=== PATIENT | female | born 1990 | race Caucasian/White ===

== ENCOUNTER → 2016-07-05 | Outpatient (CLI) | payer OTHER ==
[~2016-07-05] MED LIST: AMOX875T3 PO; CYAN500T PO; EFF50 PO; ETON1IMP2; GADAVIST IV PRN; MULT-506 PO; NUTRPAK70; SUMA100T16 PO; WLL75 PO
--- NOTE | 2016-07-05 09:54 | DIAGNOSTIC IMAGING REPORT ---
MRI THE NECK WITHOUT A WITH GADOLINIUM CLINICAL HISTORY: Pterygoid muscle mass. COMPARISON STUDY: MRI the brain performed December 07, 2015 FINDINGS: Imaging was performed in the coronal and axial planes. Images before and after the administration of 6 cc of intravenous Gadavist were acquired. There is a small retention cyst within the left maxilla sinus. There is a T2 bright mass within the left lateral pterygoid muscle measuring 16 x 16 x 11 mm. This appears minimally larger than on the prior study. The mass demonstrates avid post gadolinium enhancement. No additional masses are visualized. No salivary gland masses are evident. There is no pathologic cervical lymphadenopathy. IMPRESSION: Very slight interval increase in the size of a circumscribed 16 x 16 x 11, avidly enhancing T2 bright mass involving the left pterygoid muscle. Likely diagnostic considerations include intramuscular hemangioma, angiofibroma, intramuscular paraganglioma or intramuscular neurogenic tumor. Electronically signed by: Kaiden Esquivel M.D. 07/05/2016 9:53 AM Dictated Date/Time: 07/05/2016 9:41 AM
== END | disposition home or self-care (01) ==
LOC: C.MRI 08:49
PROVIDERS: ATTEND Otolaryngology
DX: I99.9 Unspecified disorder of circulatory system (principal)

== ENCOUNTER → 2016-07-06 | Outpatient (CLI) | payer OTHER ==
[~2016-07-06] MED LIST changes: -GADAVIST IV PRN
== END | disposition home or self-care (01) ==
LOC: C.LAB 14:18
PROVIDERS: ATTEND Obstetrics & Gynecology
DX: O99.89 Other specified diseases and conditions complicating pregnancy, childbirth and the puerperium (principal); Z3A.00 Weeks of gestation of pregnancy not specified

== ENCOUNTER 2016-07-18 09:33 | Emergency (ER) | payer OTHER ==
[~2016-07-18] VITALS: Ht 167.6 cm; Wt 67.7 kg
[2016-07-18 09:38] VITALS: Ht 167.6 cm; Wt 67.7 kg
[2016-07-18] MEDS ORDERED: EFF50 PO (09:57)
[2016-07-18] MEDS ORDERED: WLL75 PO (09:57)
[2016-07-18] MEDS ORDERED: NUTRPAK70 (09:57)
[2016-07-18 10:32] LABS: BASO % 0.3 %; BASO ABS # 0.02 K/uL (0-0.2); COMPLETE YES; EOS % 0.9 %; HEMATOCRIT 34.2 % (37-47); IG% 0.1 %; LYMPH % 15.4 %; MEAN CELL VOLUME 79.5 fL (80-100); MEAN CORPUSCULAR HEMOGLOBIN 27.2 pg (25-34); MEAN CORPUSCULAR HGB CONC 34.2 g/dl (32-36); MEAN PLATELET VOLUME 11.4 fL (7.4-10.4); MONO % 13.5 %; NEUT % 69.8 %; PLATELET COUNT 194 K/uL (130-400); WHITE BLOOD COUNT 7.79 K/uL (4.8-10.8)
[2016-07-18 10:47] LABS: PROTHROMBIN TIME (PATIENT) 10.8 SECONDS (9.0-12.0)
[2016-07-18 10:50] LABS: BUN/CREATININE RATIO 12.2 (10-20); CALCIUM 8.7 mg/dl (8.5-10.1); CREATININE 0.68 mg/dl (0.60-1.20); POTASSIUM 3.7 mmol/L (3.5-5.1)
[2016-07-18 10:53] LABS: ALB/GLOB RATIO 1.1 (0.9-2)
--- NOTE | 2016-07-18 11:53 | DIAGNOSTIC IMAGING REPORT ---
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 Vaginal bleeding. TECHNIQUE: Ultrasound COMPARISON STUDY: None FINDINGS: Per history the patient has a history of intrauterine gestational sac. This images are not available. There is intrauterine device in position within the central canal. At the fundal aspect of the intrauterine device is a very small saclike process which is at 2 small 5 to evaluate the content. Myometrium and remaining endometrium is diffusely heterogeneous which may indicate hemorrhagic component The ovaries are not well seen due to overlying bowel content. IMPRESSION: 1. Thickened heterogeneous endometrium with an intrauterine device present within the central canal. 2. Small sac like process at adjacent to the proximal/fundal tip of the intrauterine device which may reside represent residual from a prior intrauterine . 3. heartbeat or pole are not identified. 4. Diffuse heterogeneity and prominence of the endometrium , indicative of a hemorrhagic component. Electronically signed by: Poncho Baird M.D. 07/18/2016 11:51 AM Dictated Date/Time: 07/18/2016 11:48 AM
[2016-07-18 13:26] VITALS: BP 121/69; PULSE 104; TEMP 36.8; O2SAT 100
[2016-07-18 14:10] VITALS: BP 121/69; PULSE 104; O2SAT 100
--- NOTE | 2016-07-18 14:28 | GYNECOLOGICAL CONSULTATION ---
DATE OF CONSULTATION: 07/18/2016 CHIEF COMPLAINT: Vaginal bleeding. HISTORY OF PRESENT ILLNESS: This is a 26-year-old G1, P0, seen by my partner, Dr. Get Geller on July 06, at which time she had been found to have a positive home test and she had a copper IUD in place. At that time, the patient had an ultrasound done in the office setting which showed what was felt to be an intrauterine in the right horn of a bicornuate uterus with a copper IUD in the lower uterine segment; however, there was no pole or yolk sac seen, and at that time, her quant was in 1200 range. She is known Rh negative. Dr. Geller counseled her at that time on the importance of removing the IUD, which the patient refused. He also counseled her on the importance of RhoGAM if indeed bleeding began and the patient was planning a trip the following week, the patient decided to decline medical care in favor of going on her vacation, which she did. She calls me this morning as the oncall physician and reports that she did indeed travel to [facility], during her time there on July 09, heavy bleeding began. The patient uses menstrual cups, tampons and also admits to "making her own tampons" by filling the vagina with dining napkins. She soaked through all of these various items with passage of large clots. She did not at any time feel lightheaded or afraid of the amount of bleeding, but she did expect that she was having a miscarriage which in her eyes with a positive thing as this was an unplanned undesired . She contacted me this morning stating that the bleeding continues. She still denies lightheadedness, but she wonders what medical care she needs now that she is here in the [facility]. She was advised to present to the ER, which she did. On presentation to the ER, an ultrasound was done which I have looked at, the report of today's ultrasound shows a thickened heterogenous endometrium with a sac like process which is adjacent to the proximal or fundal tip of the intrauterine device, which is believed to be too small in size to evaluate any contents. The IUD remains within the "central canal." There is no pole or heart beat identified and the adnexa are not well seen due to "overlying bowel content." As of today, the patient's beta hCG has increased significantly to 16,866. Her hemoglobin is 11.7 and her platelets are 194. The patient states the bleeding does not bother her, this has not desired and at this point she wants to know if she can still go see an clinic or what her options are. REVIEW OF SYSTEMS: Negative x10 except as described above. PAST MEDICAL HISTORY: Migraines. PAST SURGICAL HISTORY: None. SOCIAL HISTORY: Nonsmoking single white female, accompanied by her partner. She denies any prior sexual partners and states in front of this male that he is the only partner of her lifetime. MEDICATIONS: Bupropion 75 mg p.o. b.i.d. and venlafaxine 50 mg p.o. b.i.d. as well as [id number] cold and flu medicine for a current upper respiratory illness. ALLERGIES: No known drugs. PHYSICAL EXAMINATION: VITAL SIGNS: Currently temperature 37.1, pulse 77, respirations 20, BP 146/85 and then on retake 117/72, pulse ox 97-100% on room air. GENERAL: Alert, oriented, in no acute distress. HEENT: Grossly normal. NECK: Supple. RESPIRATORY: No accessory muscle use, normal rate, speaking fluently. CARDIOVASCULAR: No peripheral edema. GASTROINTESTINAL: She has a soft, nontender abdomen without obvious rebound, guarding or distention. GENITOURINARY: Bimanual exam reveals a 6-7 cm uterus which is midline and nondistended. No adnexal tenderness. No cervical motion tenderness. Speculum exam reveals a closed, long, and thick cervix with a small amount of dark red vaginal blood in the vault. Normal external genitalia. MUSCULOSKELETAL: Normal. EXTREMITIES: In range of motion. HEME: No obvious ecchymoses. IMAGING: Reviewed includes the pelvic ultrasound previously discussed. LABORATORY VALUES: Previously discussed. ASSESSMENT AND PLAN: A 26-year-old G1, P0 with an undesired unplanned of uncertain location with an intrauterine device still in place. I have discussed with the patient that given the limited information available to us by combining what was done in the office prior to her trip and what we are able to do today, several possibilities remain on the differential, one of these possibilities is ectopic . With a which was conceived in the setting of an intrauterine device, this is always a possibility. At no time have we been able to yet to image a definitive intrauterine with either yolk sac or pole and therefore we must remain cognizant of the fact that this could be a pseudo sac in the uterus, especially given that her hCG has risen despite her bleeding. Second possibility is that she had an intrauterine which was very early prior to her departure which then developed and miscarried and now she is in fact resolving what was an intrauterine , so although there may have been an intrauterine that we were not able to demonstrate the sac that is seen today could be debris that remains. Final possibility is that she has a normally developing intrauterine , which is undesired. We discussed that the intrauterine device cannot be relied on to provide control at this time, it is not felt to be in a normal position, further she has a bicornuate uterus and now that this is not an intrauterine device is not an appropriate control method for her. She has decided that she would like to use condoms with 100% compliance for her control at this time. She consented today to removal of the intrauterine device. Attempt was made in the Emergency Department setting to remove the intrauterine device using a placental forceps, which was best instrument available to me and unfortunately I was unable to retrieve the intrauterine device as no strings are visible and I was unable to actually confirm the intrauterine device' presence by filling the forceps, grasp, or bump into anything solid inside the uterus. The patient did have a type and screen done today and as her antibody screen was negative, RhoGAM was administered to the patient today. We discussed the management of her of unknown location. The patient does not wish to carry this ; however, she is also anxious about receiving methotrexate as it is chemotherapeutic and has some unpleasant side effects. She wishes to observe for 48 hours with a follow up quant and ultrasound to be done at that time. If her quant is falling, she hopes to manage expectantly. If her quant is arising, she will accept methotrexate at that time. Meanwhile, ectopic precautions including being with a over the road driver at all times and returning to the Emergency Room promptly for any onset of sudden pain, nausea, vomiting, lightheadedness, fecal urgency or worsening of her bleeding was discussed with the patient and her partner. They understand the seriousness of a of unknown location and the risks to her if she does not follow up appropriately including but not limited to maternal . PLAN: At this time will be for followup labs and ultrasound to be done on 07/20/2016 in the office setting, at which time the patient may be counseled on the use of methotrexate and also may be counseled on plan for IUD removal via either hysteroscopic or laparoscopic methods, if the IUD is still demonstrated to be in place.
--- NOTE | 2016-07-18 15:17 | EMERGENCY ROOM VISIT NOTE ---
History First contact with patient: 09:51 Chief Complaint: ED VAG BLEEDING Stated Complaint: MISCARRIAGE, INTENSE VAGINAL BLEEDING History of Present Illness The patient is a 26 year old female who presents to the Emergency Room with complaints of a vaginal bleeding. The patient reports that she had a positive urine test about 2 weeks ago. She was seen by Dr. Geller 07/06/16, and blood work was ordered. She was contacted and advised that she was . The patient then went to [facility] and just returned yesterday. The patient reports that she had blood running down her legs yesterday while going through customs at the airport. She is wearing a menstrual cuff, and reports that she is feeling the cup every hour. He has also been making her own tampons because the blood soaked through regular tampons. This is the patient's first . She estimates being approximately 5-6 weeks . She has been spotting since 06/28/16. She currently denies any other symptoms, including weakness, nausea or abdominal pain. The patient does report that she has a copper IUD in place. Review of Systems HEENT: Denies dizziness, visual problems, hearing loss, tinnitus. Denies difficulty swallowing or oral lesions. PULMONARY: Denies cough, shortness of breath, sputum production or hemoptysis. CARDIOVASCULAR: Denies chest pain, palpitations, dyspnea on exertion, orthopnea or peripheral edema. GASTROINTESTINAL: Denies diarrhea, constipation, nausea, vomiting, or abdominal pain. GENITOURINARY: Denies dysuria, frequency, urgency or nocturia. NEUROLOGIC: Denies history of epilepsy, CVA, TIA or chronic headaches. MUSCULOSKELETAL: Denies history of joint tenderness/swelling. SKIN: Denies rashes or lesions. PSYCHIATRIC: Denies history of depression or mental illness. ENDOCRINE: Denies history of diabetes or thyroid disorders. Past Medical/Surgical History Medical Problems: (1) Migraines Family History Unremarkable Social History Smoking Status: Never Smoker Alcohol Use: occasionally Marital Status: in relationship Housing Status: lives with significant other Occupation Status: employed Current/Historical Medications Scheduled Bupropion HCl (Bupropion HCl), 75 MG PO BID Venlafaxine HCl (Venlafaxine HCl), 50 MG PO BID Miscellaneous Medications Nutritional Supplements (Cold And Flu) Allergies Coded Allergies: No Known Allergies (Unverified , 07/18/16) Physical Exam Vital Signs Date Time Temp Pulse Resp B/P Pulse Ox O2 Delivery O2 Flow Rate FiO2 07/18/16 14:10 104 18 121/69 100 07/18/16 13:26 36.8 104 18 121/69 100 Room Air 07/18/16 13:26 36.8 104 18 121/69 100 07/18/16 11:59 98 18 117/72 100 Room Air 07/18/16 09:38 37.1 77 20 146/85 97 Room Air Physical Exam CONSTITUTIONAL: Healthy and well nourished. Alert and oriented X 3 with positive affect. Patient is not in any acute distress. HEENT: Normocephalic, atraumatic. Pupils equal, round and reactive. Ears and nares are clear. No conjunctival pallor or scleral icterus. NECK: Full active range of motion without discomfort. RESPIRATORY: Clear to auscultation bilaterally with no wheezing, crackles, rhonchi or stridor. CARDIOVASCULAR: Regular rate and rhythm with no murmurs, rubs or gallops. GASTROINTESTINAL: Bowel sounds present in all quadrants. Nontender to palpation. Negative CVA tenderness. No palpable suprapubic masses. GENITOURINARY: Pelvic exam was performed by our female physician patient support assistant student under direct supervision. Normal external genitalia. The menstrual cup was removed without any overt trauma to the vaginal wall. There is minimal blood within the vaginal vault. There is no active bleeding from the cervix, which is opened. No soft tissue or IUD noted. MUSCULOSKELETAL: Full range of motion of all joints without discomfort. INTEGUMENTARY: No rash or other significant dermatologic conditions noted. HEMATOLOGIC: No ecchymosis or petechiae. NEUROLOGIC: No focal neurologic deficits noted. 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 Vaginal bleeding. TECHNIQUE: Ultrasound COMPARISON STUDY: None FINDINGS: Per history the patient has a history of intrauterine gestational sac. This images are not available. There is intrauterine device in position within the central canal. At the fundal aspect of the intrauterine device is a very small saclike process which is at 2 small 5 to evaluate the content. Myometrium and remaining endometrium is diffusely heterogeneous which may indicate hemorrhagic component The ovaries are not well seen due to overlying bowel content. IMPRESSION: 1. Thickened heterogeneous endometrium with an intrauterine device present within the central canal. 2. Small sac like process at adjacent to the proximal/fundal tip of the intrauterine device which may reside represent residual from a prior intrauterine . 3. heartbeat or pole are not identified. 4. Diffuse heterogeneity and prominence of the endometrium , indicative of a hemorrhagic component. Laboratory Results 07/18/16 10:21 Red Blood Count 4.30, Mean Corpuscular Volume 79.5, Mean Corpuscular Hemoglobin 27.2, Mean Corpuscular Hemoglobin Concent 34.2, Mean Platelet Volume 11.4, Neutrophils (%) (Auto) 69.8, Lymphocytes (%) (Auto) 15.4, Monocytes (%) (Auto) 13.5, Eosinophils (%) (Auto) 0.9, Basophils (%) (Auto) 0.3, Neutrophils # (Auto ) 5.44, Lymphocytes # (Auto) 1.20, Monocytes # (Auto) 1.05, Eosinophils # (Auto ) 0.07, Basophils # (Auto) 0.02 07/18/16 10:21 Test 07/18/16 10:21 White Blood Count 7.79 K/uL (4.8-10.8) Red Blood Count 4.30 M/uL (4.2-5.4) Hemoglobin 11.7 g/dL (12.0-16.0) Hematocrit 34.2 % (37-47) Mean Corpuscular Volume 79.5 fL (80-100) Mean Corpuscular Hemoglobin 27.2 pg (25-34) Mean Corpuscular Hemoglobin Concent 34.2 g/dl (32-36) Platelet Count 194 K/uL (130-400) Mean Platelet Volume 11.4 fL (7.4-10.4) Neutrophils (%) (Auto) 69.8 % Lymphocytes (%) (Auto) 15.4 % Monocytes (%) (Auto) 13.5 % Eosinophils (%) (Auto) 0.9 % Basophils (%) (Auto) 0.3 % Neutrophils # (Auto) 5.44 K/uL (1.4-6.5) Lymphocytes # (Auto) 1.20 K/uL (1.2-3.4) Monocytes # (Auto) 1.05 K/uL (0.11-0.59) Eosinophils # (Auto) 0.07 K/uL (0-0.5) Basophils # (Auto) 0.02 K/uL (0-0.2) RDW Standard Deviation 42.1 fL (36.4-46.3) RDW Coefficient of Variation 14.6 % (11.5-14.5) Immature Granulocyte % (Auto) 0.1 % Immature Granulocyte # (Auto) 0.01 K/uL (0.00-0.02) Prothrombin Time 10.8 SECONDS (9.0-12.0) Prothromb Time International Ratio 1.0 (0.9-1.1) Activated Partial Thromboplast Time 25.8 SECONDS (21.0-31.0) Partial Thromboplastin Ratio 1.0 Anion Gap 7.0 mmol/L (3-11) Est Creatinine Clear Calc Drug Dose 118.3 ml/min Estimated GFR () 140.9 Estimated GFR (Non- 121.6 BUN/Creatinine Ratio 12.2 (10-20) Calcium Level 8.7 mg/dl (8.5-10.1) Total Bilirubin 0.4 mg/dl (0.2-1) Aspartate Amino Transf (AST/SGOT) 15 U/L (15-37) Alanine Aminotransferase (ALT/SGPT) 22 U/L (12-78) Alkaline Phosphatase 46 U/L (45-117) Total Protein 6.7 gm/dl (6.4-8.2) Albumin 3.5 gm/dl (3.4-5.0) Globulin 3.2 gm/dl (2.5-4.0) Albumin/Globulin Ratio 1.1 (0.9-2) Human Chorionic Gonadotropin, Quant 73732 mIU/mL The above labs were reviewed. ED Course Patient history and physical exam were performed. Nurse's notes were reviewed. Vital signs were reviewed and were normal. IV access was established, and labs were drawn. Review of labs shows an increasing quantitative beta hCG. Hemoglobin is slightly low. Antibody screen is negative. Remaining labs were reviewed and grossly normal. Pelvic exam was performed to show no active bleeding or other abnormal cervical appearance. At this point, the case was further discussed with Dr. Das, REVENUE ACCOUNTANT, who came to the emergency department for further evaluation. The patient was administered program. Dr. James attempted IUD removal without success. Please see her dictation for further discussion with the patient as the patient is electing 48-hour follow-up in the office for a repeat quantitative beta hCG. At this point, it is uncertain whether the patient has had a spontaneous or possible ectopic . The patient was instructed to return to the emergency department for any significantly worsening bleeding, abdominal pain, vomiting, fever or other concerning symptoms. Otherwise, she will follow- up with her REVENUE ACCOUNTANT for repeat labs in 48 hours. Medical Decision See previous section, with differential diagnoses including ectopic ,, spontaneous and normal intrauterine with the equivocal ultrasound finding today. The patient is currently not anemic. Impression Primary Impression: Additional Impression: Vaginal bleeding Departure Information Referrals Andie Delgado DO (PCP) Patient Instructions My [facility] Problem Qualifiers Primary Impression: Weeks of gestation: less than 8 weeks Qualified Codes: Z3A.01 - Less than 8 weeks gestation of
[2016-12-14] MEDS ORDERED: SUMA100T16 PO (13:29)
[2016-12-14] MEDS ORDERED: ETON1IMP2 (13:29)
[2016-12-14] MEDS ORDERED: MULT-506 PO (13:29)
[2016-12-14] MEDS ORDERED: CYAN500T PO (13:29)
[2016-12-14] MEDS ORDERED: AMOX875T3 PO (13:29)
== END 2016-07-18 14:10 | disposition home or self-care (01) ==
LOC: C.EDB 09:34
DX: N93.8 Other specified abnormal uterine and vaginal bleeding (principal); Z32.01 Encounter for pregnancy test, result positive; Z97.5 Presence of (intrauterine) contraceptive device; Z79.899 Other long term (current) drug therapy

== ENCOUNTER → 2016-07-20 | Outpatient (CLI) | payer OTHER | END | disposition home or self-care (01) | LOC: C.LAB 07:20 | PROVIDERS: ATTEND Obstetrics & Gynecology | DX: O26.31 Retained intrauterine contraceptive device in pregnancy, first trimester (principal) ==

== ENCOUNTER 2016-08-04 09:54 | Emergency (ER) | payer OTHER ==
[~2016-08-04] VITALS: Ht 167.6 cm; Wt 68.2 kg
[~2016-08-04 09:54] MED LIST changes: -AMOX875T3 PO; -CYAN500T PO; -ETON1IMP2; -MULT-506 PO; -SUMA100T16 PO
[2016-08-04 10:00] VITALS: TEMP 36.4; Ht 167.6 cm; Wt 68.2 kg
--- NOTE | 2016-08-04 10:28 | EMERGENCY ROOM VISIT NOTE ---
History First contact with patient: 10:03 Chief Complaint: ED VAG BLEEDING Stated Complaint: MISCARRIAGE,BLEEDING & CLOTS, DIZZY REF DR DAS History of Present Illness The patient is a 26 year old female who presents to the Emergency Room with complaints of vaginal bleeding. The patient states that her last normal menstrual period was 05/28/2016. The patient states that she was found to be despite having a copper IUD. 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 The patient was seen in the emergency department at the beginning of this month. The patient has since seen EDUCATION PROGRAM ASSOCIATE and had the IUD removed. The patient states that she has been bleeding throughout this entire month. She states she believes she passed a gestational sac on Sunday or Sunday. She states that she has continued to have bleeding and cramping. She contacted OB/ [facility] and was referred to the emergency department. She reports diffuse crampy abdominal pain rated a 5/10. She states that she notices vaginal bleeding which is significantly worse when she stands up. She reports dizziness and lightheadedness. The patient received Rhogam on July 18 this year. Review of Systems A 10 system review of systems was completed with positives and pertinent negatives listed in the HPI. Past Medical/Surgical History Medical Problems: (1) Migraines Surgical Problems: (1) No history of previous surgery Social History Smoking Status: Never Smoker Alcohol Use: occasionally Marital Status: in relationship Housing Status: lives with significant other Occupation Status: employed Current/Historical Medications Scheduled Bupropion HCl (Bupropion HCl), 75 MG PO BID Venlafaxine HCl (Venlafaxine HCl), 50 MG PO BID Miscellaneous Medications Nutritional Supplements (Cold And Flu) Allergies Coded Allergies: No Known Allergies (Unverified , 08/04/16) Physical Exam Vital Signs Date Time Temp Pulse Resp B/P Pulse Ox O2 Delivery O2 Flow Rate FiO2 08/04/16 13:18 84 16 121/68 99 Room Air 08/04/16 11:54 95 16 109/67 99 Room Air 08/04/16 10:00 36.4 104 18 115/74 99 Room Air Physical Exam VITALS: Vitals are noted on the nurse's note and reviewed by myself. Vital signs stable. The patient is afebrile. GENERAL: This is a 26-year-old female, in no acute distress, nondiaphoretic, well-developed well-nourished. SKIN: The skin was without rashes, erythema, edema, or bruising. There is no tenting of the skin. Capillary reflex less than 2 seconds. HEAD: Normocephalic atraumatic. EARS: The external ears are normal in appearance. EYES: Pupils equal round and reactive to light and accommodation. Conjunctivae without injection, sclerae without icterus. Extraocular movements intact. NOSE: Patent, turbinates without inflammation or discharge. MOUTH: Mucous membranes moist. Tonsils are not enlarged. Pharynx without erythema or exudate. Uvula midline. Airway patent. Tongue does not deviate. NECK: Supple without nuchal rigidity. No lymphadenopathy. No thyromegaly. Cervical spine is nontender. No JVD. HEART: Regular rate and rhythm without murmurs gallops or rubs. LUNGS: Clear to auscultation bilaterally without wheezes, rales or rhonchi. No retractions or accessory muscle use. ABDOMEN: Positive bowel sounds x 4. Soft, mild diffuse tenderness, without masses or organomegaly. : The external genitalia is normal in appearance. There is scant bleeding noted from the cervical os which is closed. There is no cervicitis. There is no MUSCULOSKELETAL significant cervical motion tenderness. There is no obvious adnexal mass or tenderness. No muscle atrophy, erythema, or edema noted. Full range of motion in all extremities. Normal gait. Strength 5/5 throughout. NEURO: Patient was alert and oriented to person place and time. No focal neurological deficits. Medical Decision & Procedures ER Provider Diagnostic Interpretation: [~ rep ct add3]] ULTRASOUND OF THE PELVIS CLINICAL HISTORY: Vaginal bleeding. Recent miscarriage. COMPARISON STUDY: Pelvic ultrasound dated 07/18/2016. TECHNIQUE: Real-time, grayscale, and color flow sonography of the pelvis is performed both transabdominally and endovaginally. Images are reviewed in the transverse and longitudinal planes. FINDINGS: Uterus: The uterus is normal in size and echotexture, measuring 7.9 x 5.2 x 8.2 cm. Nabothian cysts are noted in the cervix. Endometrium: The endometrium appears thickened, measuring up to 1.5 cm. No abnormal endometrial vascularity is identified on color imaging. the intrauterine device seen on 07/18/2016 has been removed. Ovaries: The ovaries are normal in size and morphology. The right ovary measures 3.9 x 2.3 x 1.9 cm and the left ovary measures 3.9 x 1.6 x 2.2 cm. There are small bilateral ovarian follicles. Normal Doppler waveforms are shown within both ovaries. Pelvis: There is no free fluid in the cul-de-sac. No concerning adnexal lesion is seen. IMPRESSION: 1. No intrauterine gestation is identified. This may represent an intrauterine gestation that is too small to visualize or a missed . Although there is no concerning adnexal lesion identified, in the setting of a positive test without a confirmed intrauterine gestation ectopic would be impossible to exclude. Close clinical, laboratory, and sonographic follow-up is recommended. 2. The intrauterine device seen on 07/18/2016 is no longer identified and has presumably been removed. 3. The ovaries are normal in appearance. Laboratory Results 08/04/16 10:30 Red Blood Count 4.23, Mean Corpuscular Volume 80.4, Mean Corpuscular Hemoglobin 26.7, Mean Corpuscular Hemoglobin Concent 33.2, Mean Platelet Volume 11.7, Neutrophils (%) (Auto) 69.9, Lymphocytes (%) (Auto) 19.6, Monocytes (%) (Auto) 9.0, Eosinophils (%) (Auto) 1.0, Basophils (%) (Auto) 0.4, Neutrophils # (Auto) 5.74, Lymphocytes # (Auto) 1.61, Monocytes # (Auto) 0.74, Eosinophils # (Auto) 0.08, Basophils # (Auto) 0.03 08/04/16 10:30 Test 08/04/16 10:30 White Blood Count 8.21 K/uL (4.8-10.8) Red Blood Count 4.23 M/uL (4.2-5.4) Hemoglobin 11.3 g/dL (12.0-16.0) Hematocrit 34.0 % (37-47) Mean Corpuscular Volume 80.4 fL (80-100) Mean Corpuscular Hemoglobin 26.7 pg (25-34) Mean Corpuscular Hemoglobin Concent 33.2 g/dl (32-36) Platelet Count 228 K/uL (130-400) Mean Platelet Volume 11.7 fL (7.4-10.4) Neutrophils (%) (Auto) 69.9 % Lymphocytes (%) (Auto) 19.6 % Monocytes (%) (Auto) 9.0 % Eosinophils (%) (Auto) 1.0 % Basophils (%) (Auto) 0.4 % Neutrophils # (Auto) 5.74 K/uL (1.4-6.5) Lymphocytes # (Auto) 1.61 K/uL (1.2-3.4) Monocytes # (Auto) 0.74 K/uL (0.11-0.59) Eosinophils # (Auto) 0.08 K/uL (0-0.5) Basophils # (Auto) 0.03 K/uL (0-0.2) RDW Standard Deviation 40.4 fL (36.4-46.3) RDW Coefficient of Variation 13.8 % (11.5-14.5) Immature Granulocyte % (Auto) 0.1 % Immature Granulocyte # (Auto) 0.01 K/uL (0.00-0.02) Anion Gap 5.0 mmol/L (3-11) Est Creatinine Clear Calc Drug Dose 99.3 ml/min Estimated GFR () 117.0 Estimated GFR (Non- 100.9 BUN/Creatinine Ratio 18.9 (10-20) Calcium Level 8.8 mg/dl (8.5-10.1) Total Bilirubin 0.4 mg/dl (0.2-1) Aspartate Amino Transf (AST/SGOT) 8 U/L (15-37) Alanine Aminotransferase (ALT/SGPT) 17 U/L (12-78) Alkaline Phosphatase 50 U/L (45-117) Total Protein 7.0 gm/dl (6.4-8.2) Albumin 3.5 gm/dl (3.4-5.0) Globulin 3.5 gm/dl (2.5-4.0) Albumin/Globulin Ratio 1.0 (0.9-2) Human Chorionic Gonadotropin, Quant 1755 mIU/mL ED Course The patient was seen and examined. Previous visits were reviewed. The patient does not have a fever or leukocytosis. She is not significantly anemic. She does not have any significant electrolyte abnormalities. Quantitative hCG was 1755. The patient has a history of Rh- status but recently received Rhogam on July 18 Ultrasound does not reveal any intrauterine gestational sac. On pelvic exam, she had only scant vaginal bleeding. She is hemodynamically stable. This likely represents progression of the miscarriage. I discussed the case with Dr. Stack who recommends that she follow up in the office with Dr. Das. the patient should return to the ER with any worsening bleeding or worsening symptoms. Otherwise, she should follow up with EDUCATION PROGRAM ASSOCIATE next week. The case was discussed with Dr. Sapp who agrees with the assessment and treatment plan. . Medical Decision The differential diagnosis includes miscarriage, missed , hemorrhage, anemia, among others Impression Primary Impression: Miscarriage Departure Information Dispostion Home / Self-Care Condition GOOD Referrals Andie Delgado DO (PCP) Jailyn Das MD Forms HOME CARE DOCUMENTATION FORM, IMPORTANT VISIT INFORMATION, WORK / SCHOOL INSTRUCTIONS Patient Instructions Miscarriage - [facility], [facility] Additional Instructions Contact EDUCATION PROGRAM ASSOCIATE to schedule a follow up appointment for further evaluation and management Return with any worsening bleeding or fevers Work Instructions Return To Work: 3 days
[2016-08-04 10:53] LABS: BASO % 0.4 %; BASO ABS # 0.03 K/uL (0-0.2); COMPLETE YES; IG% 0.1 %; LYMPH % 19.6 %; LYMPH ABS # 1.61 K/uL (1.2-3.4); MEAN CELL VOLUME 80.4 fL (80-100); MEAN CORPUSCULAR HEMOGLOBIN 26.7 pg (25-34); MEAN CORPUSCULAR HGB CONC 33.2 g/dl (32-36); MEAN PLATELET VOLUME 11.7 fL (7.4-10.4); NEUT % 69.9 %; PLATELET COUNT 228 K/uL (130-400); RED BLOOD COUNT 4.23 M/uL (4.2-5.4); WHITE BLOOD COUNT 8.21 K/uL (4.8-10.8)
[2016-08-04 11:14] LABS: BUN/CREATININE RATIO 18.9 (10-20); CALCIUM 8.8 mg/dl (8.5-10.1); CREATININE 0.81 mg/dl (0.60-1.20); POTASSIUM 3.7 mmol/L (3.5-5.1)
--- NOTE | 2016-08-04 12:49 | DIAGNOSTIC IMAGING REPORT ---
ULTRASOUND OF THE PELVIS CLINICAL HISTORY: Vaginal bleeding. Recent miscarriage. COMPARISON STUDY: Pelvic ultrasound dated 07/18/2016. TECHNIQUE: Real-time, grayscale, and color flow sonography of the pelvis is performed both transabdominally and endovaginally. Images are reviewed in the transverse and longitudinal planes. FINDINGS: Uterus: The uterus is normal in size and echotexture, measuring 7.9 x 5.2 x 8.2 cm. Nabothian cysts are noted in the cervix. Endometrium: The endometrium appears thickened, measuring up to 1.5 cm. No abnormal endometrial vascularity is identified on color imaging. the intrauterine device seen on 07/18/2016 has been removed. Ovaries: The ovaries are normal in size and morphology. The right ovary measures 3.9 x 2.3 x 1.9 cm and the left ovary measures 3.9 x 1.6 x 2.2 cm. There are small bilateral ovarian follicles. Normal Doppler waveforms are shown within both ovaries. Pelvis: There is no free fluid in the cul-de-sac. No concerning adnexal lesion is seen. IMPRESSION: 1. No intrauterine gestation is identified. This may represent an intrauterine gestation that is too small to visualize or a missed . Although there is no concerning adnexal lesion identified, in the setting of a positive test without a confirmed intrauterine gestation ectopic would be impossible to exclude. Close clinical, laboratory, and sonographic follow-up is recommended. 2. The intrauterine device seen on 07/18/2016 is no longer identified and has presumably been removed. 3. The ovaries are normal in appearance. Electronically signed by: Markus Esposito M.D. 08/04/2016 12:47 PM Dictated Date/Time: 08/04/2016 12:44 PM
[2016-08-04 13:18] VITALS: BP 121/68; PULSE 84; O2SAT 99
[2016-12-14] MEDS ORDERED: MULT-506 PO (13:29)
[2016-12-14] MEDS ORDERED: AMOX875T3 PO (13:29)
[2016-12-14] MEDS ORDERED: CYAN500T PO (13:29)
[2016-12-14] MEDS ORDERED: SUMA100T16 PO (13:29)
[2016-12-14] MEDS ORDERED: ETON1IMP2 (13:29)
== END 2016-08-04 13:20 | disposition home or self-care (01) ==
LOC: C.EDB 09:57
DX: O03.9 Complete or unspecified spontaneous abortion without complication (principal); Z79.899 Other long term (current) drug therapy

== ENCOUNTER → 2016-08-11 | Outpatient (CLI) | payer OTHER ==
[~2016-08-11] MED LIST changes: +AMOX875T3 PO; +CYAN500T PO; +ETON1IMP2; +MULT-506 PO; +SUMA100T16 PO
== END | disposition home or self-care (01) ==
LOC: C.LABBC 12:39
PROVIDERS: ATTEND Obstetrics & Gynecology
DX: O02.1 Missed abortion (principal)

== ENCOUNTER → 2016-08-18 | Outpatient (CLI) | payer OTHER ==
--- NOTE | 2016-08-18 13:19 | DIAGNOSTIC IMAGING REPORT ---
LEFT ANKLE MIN 3 VIEWS ROUTINE CLINICAL HISTORY: R93.7 Abnormal bone x-ray pain COMPARISON: 02/03/2016 DISCUSSION: Unchanged cortical thickening. Sites of the distal tibia as well as fibula. These are identical as compared to the prior study. There are felt to be benign and related to old trauma. Ankle mortise is aligned anatomically. There is no lytic or blastic process. There is no evidence for soft tissue swelling. IMPRESSION: Identical study compared to the prior exam. There is cortical thickening of the distal tibia as well as fibula are unchanged. These statistically are considered benign and most likely related to old trauma Electronically signed by: Poncho Baird M.D. 08/18/2016 1:17 PM Dictated Date/Time: 08/18/2016 1:15 PM
== END | disposition home or self-care (01) ==
LOC: C.RADBC 12:33
PROVIDERS: ATTEND Obstetrics & Gynecology
DX: O02.1 Missed abortion (principal); R93.7 Abnormal findings on diagnostic imaging of other parts of musculoskeletal system

== ENCOUNTER → 2016-08-25 | Outpatient (CLI) | payer OTHER | END | disposition home or self-care (01) | LOC: C.LAB 12:56 | PROVIDERS: ATTEND Obstetrics & Gynecology | DX: O02.1 Missed abortion (principal) ==

== ENCOUNTER → 2016-11-02 | Outpatient (CLI) | payer OTHER ==
[2016-11-02 16:57] LABS: BASO % 0.5 %; BASO ABS # 0.03 K/uL (0-0.2); COMPLETE YES; EOS % 3.1 %; HEMATOCRIT 37.9 % (37-47); LYMPH % 35.4 %; LYMPH ABS # 1.95 K/uL (1.2-3.4); MEAN CELL VOLUME 76.9 fL (80-100); MEAN CORPUSCULAR HEMOGLOBIN 24.3 pg (25-34); MEAN CORPUSCULAR HGB CONC 31.7 g/dl (32-36); MEAN PLATELET VOLUME 11.7 fL (7.4-10.4); MONO % 12.5 %; NEUT % 48.5 %; PLATELET COUNT 218 K/uL (130-400); RED BLOOD COUNT 4.93 M/uL (4.2-5.4); WHITE BLOOD COUNT 5.51 K/uL (4.8-10.8)
[2016-11-02 17:58] LABS: BLOOD UREA NITROGEN 16 mg/dl (7-18); BUN/CREATININE RATIO 16.8 (10-20); CALCIUM 9.2 mg/dl (8.5-10.1); CARBON DIOXIDE 29 mmol/L (21-32); CHLORIDE 107 mmol/L (98-107); CREATININE 0.95 mg/dl (0.60-1.20); GLUCOSE 108 mg/dl (70-99); POTASSIUM 4.1 mmol/L (3.5-5.1); SODIUM 140 mmol/L (136-145)
== END | disposition home or self-care (01) ==
LOC: C.LABBC 15:26
PROVIDERS: ATTEND Family Medicine
DX: R53.83 Other fatigue (principal)

== ENCOUNTER → 2016-12-25 | Outpatient (CLI) | payer OTHER ==
[~2016-12-25] MED LIST changes: -NUTRPAK70
[2016-12-25 15:45] LABS: BASO % 0.4 %; BASO ABS # 0.02 K/uL (0-0.2); COMPLETE YES; EOS % 0.5 %; HEMATOCRIT 33.8 % (37-47); IG% 0.2 %; LYMPH % 26.2 %; LYMPH ABS # 1.44 K/uL (1.2-3.4); MEAN CORPUSCULAR HEMOGLOBIN 25.5 pg (25-34); MEAN CORPUSCULAR HGB CONC 33.1 g/dl (32-36); MEAN PLATELET VOLUME 12.1 fL (7.4-10.4); NEUT % 62.7 %; PLATELET COUNT 193 K/uL (130-400); RED BLOOD COUNT 4.39 M/uL (4.2-5.4)
[2016-12-25 15:53] LABS: INR 1.1 (0.9-1.1); PROTHROMBIN TIME (PATIENT) 11.4 SECONDS (9.0-12.0)
[2016-12-25 16:09] LABS: POTASSIUM 4.1 mmol/L (3.5-5.1)
== END | disposition home or self-care (01) ==
LOC: C.LAB 15:15
DX: Z01.818 Encounter for other preprocedural examination (principal); O02.1 Missed abortion; Z3A.00 Weeks of gestation of pregnancy not specified

== ENCOUNTER → 2017-01-12 | Day surgery (SDC) | payer OTHER ==
[2016-12-14 13:30] VITALS: Ht 167.6 cm; Wt 68.2 kg
[~2017-01-12] VITALS: Ht 167.6 cm; Wt 68.2 kg
[~2017-01-12] MED LIST changes: +ATROPINE SULFATE 0.1 MG/ML 5ML SYR IV PRN; +BACITRACIN/POLYMYXIN B OINT 15 GM TUBE EXT ONE; +DEXAMETHASONE SOD INJ 4 MG/ML VIAL ONE; +FENTANYL CITRATE INJ 50 MCG/1 ML 2 ML VIAL IV PRN; +FENTANYL CITRATE INJ 50 MCG/1 ML 2 ML VIAL ONE; +LABETALOL HCL IV 5 MG/ML 20ML IV PRN; +LACTATED RINGER'S 1000ML 1,000 ML IV SCH; +LIDOCAINE 2% JELLY 5 ML TUBE EXT ONE; +LIDOCAINE HCL 2% 2 ML VIAL (20MG/ML) ONE; +MIDAZOLAM HCL 1 MG/ML 2ML VIAL ONE; +ONDANSETRON INJ 2 MG/ML 2 ML VIAL IV PRN; +ONDANSETRON INJ 2 MG/ML 2 ML VIAL ONE; +OXYCODONE HCL SOLN 5 MG/5 ML UDC PO PRN; +PROMETHAZINE HCL INJ 6.25 MG in SODIUM CHLORIDE 0.9% 50ML 50 ML IV PRN; +PROPOFOL IV EMULSION 10 MG/ML 20 ML VIAL IV ONE
--- NOTE | 2017-01-12 07:01 | History and Physical: Surg Cnt ---
History & Physical Date Jan 12, 2017. Chief Complaint CHRONIC TONSILLITIS History of Present Illness The patient is a 26 year old female with complaints of CHRONIC TONSILLITIS. Past Medical/Surgical History Medical Problems: (1) Migraines 2. ANXIETY 3. DEPRESSION Surgical Problems: (1) ORAL SURGERY Additional History Hepatic Disease: No Endocrine Disorder: No Kidney Disease: No Hypertension: No Heart Disease: No Bleeding Tendencies: No Infectious Diseases: No Allergies Coded Allergies: No Known Allergies (Unverified , 01/12/17) Home Medications Scheduled Bupropion HCl (Bupropion HCl), 75 MG PO BID Cyanocobalamin (Vitamin B-12), 500 MCG PO DAILY Etonogestrel (Nexplanon), 1 DOSE UD Multivitamin (Multivitamin), 1 TAB PO DAILY Sumatriptan Succinate (Imitrex), 100 MG PO PRN Venlafaxine HCl (Venlafaxine HCl), 50 MG PO BID Physical Examination Skin: warm/dry, no rash Eyes: normal inspection, EOMI, sclerae normal ENT: + pertinent finding (2+ TONSILS) Head: normocephalic, atraumatic Neck: supple, no adenopathy, trachea midline Respiratory/Chest: lungs clear, normal breath sounds, no respiratory distress Cardiovascular: regular rate, rhythm, no edema, no murmur Neurologic/Psych: no motor/sensory deficits, alert, normal reflexes, oriented x 3 Diagnosis CHRONIC TONSILLITIS Plan of Treatment TONSILLECTOMY
--- NOTE | 2017-01-12 07:57 | [facility] Operative Report ---
Operative Report Operative Date Jan 12, 2017. Pre-Operative Diagnosis Chronic Tonsillitis Post-Operative Diagnosis Same Procedure(s) Performed Tonsillectomy Surgeon Dr. Florez Underpresser Hand Surgeon(s) None Estimated Blood Loss 5 mL Findings 1. 2-3+ CRYPTIC ENDOPHYTIC TONSILS WITH EXCESSIVE TONSILLITH FORMATION Specimens A. Right Tonsil B. Left Tonsil I attest to the content of the Intraoperative Record and any orders documented therein. Any exceptions are noted below.
--- NOTE | 2017-01-12 08:00 | Discharge Instructions ---
Discharge Instructions Date of Service Jan 12, 2017. Admission Reason for Admission: Chronic Tonsillitis Discharge Discharge Diagnosis / Problem: SAME Discharge Goals Goal(s): Therapeutic intervention Activity Recommendations Activity Limitations: as noted below LIGHT ACTIVITY FOR 2 WEEKS; NO DRIVING WHILE ON OXYCODONE . Current Hospital Diet Patient's current hospital diet: Full Liquid Diet Discharge Diet Recommended Diet: Full Liquid Diet Diet Texture: Mechanical Soft (ground) Procedures Procedures Performed: Tonsillectomy Pending Studies Studies pending at discharge: no Medical Emergencies . Who to Call and When: Medical Emergencies: If at any time you feel your situation is an emergency, please call 911 immediately. . Non-Emergent Contact Non-Emergency issues call your: Surgeon . . "Provider Documentation" section prepared by Gurvinder Florez. . VTE Core Measure Inpt VTE Proph given/why not?: SCD's
--- NOTE | 2017-01-12 08:38 | OPERATIVE REPORT ---
DATE OF OPERATION: 01/12/2017 PREOPERATIVE DIAGNOSIS: Chronic tonsillitis. POSTOPERATIVE DIAGNOSIS: Chronic tonsillitis. PROCEDURE: Bilateral tonsillectomy. SURGEON: Dr. Floerz. ANESTHESIA: General endotracheal. ESTIMATED BLOOD LOSS: 5 mL. FINDINGS: 2-3+ cryptic endophytic tonsils bilaterally with excessive tonsillith formation. SPECIMENS: Right and left tonsil sent separately for permanent pathological assessment. COMPLICATIONS: None. INDICATIONS FOR THE PROCEDURE: The patient is a 26-year-old female with the above-mentioned history presents for the above-mentioned procedure on an outpatient elective basis. DETAILS OF PROCEDURE: After informed consent had been obtained from the patient, the patient was wheeled to the operating room and placed on the operating table in supine position. Monitors were placed. After induction of general endotracheal anesthesia, the table was turned 90 degrees and the patient's head and neck were gently extended. Antibiotic ointment was applied to the lips and a mouth gag was carefully inserted, opened, and stabilized on a roll of towels. The palate was inspected and this was found to be normal. An Allis clamp was used to grasp the right tonsil in the superior pole and Bovie electrocautery was used to remove the tonsil in the capsular plane with care to preserve the underlying mucosa and musculature of the anterior and posterior tonsillar pillars. The left tonsil was then removed in a similar fashion. Intraoperative findings were 2-3+ cryptic endophytic tonsils bilaterally with excessive tonsillith formation. These were sent separately for permanent pathological assessment. The mouth gag was then released for 1 minute. This was reopened and hemostasis was confirmed. The oral cavity and oropharynx were irrigated and suctioned. A 2% lidocaine jelly was placed in the bilateral tonsillar fossae for added anesthetic effect. This marked the end of the case. The patient tolerated the procedure well with no apparent complications. All the instrumentation was removed from the patient. The patient was extubated and transferred to recovery room in stable condition. I attest to the content of the Intraoperative Record and any orders documented therein. Any exception s are noted below.
[2017-01-12 08:52] VITALS: TEMP 36.5
--- NOTE | 2017-01-12 09:31 | Anesthesia Progress Nt - [facility] ---
Anesthesia Post Op Note Date & Time Jan 12, 2017 at 09:31 Vital Signs Pain Intensity: 2.0 Vital Signs Past 12 Hours Date Time Temp Pulse Resp B/P (MAP) Pulse Ox O2 Delivery O2 Flow Rate FiO2 01/12/17 08:52 36.5 79 16 120/74 (89) 96 Room Air 01/12/17 08:46 115/76 01/12/17 08:45 65 10 01/12/17 08:45 66 10 100 01/12/17 08:44 61 14 99 01/12/17 08:44 62 14 01/12/17 08:42 123/63 01/12/17 08:41 37.0 68 12 116/63 98 Room Air 01/12/17 08:39 75 26 99 01/12/17 08:39 74 26 01/12/17 08:37 116/63 01/12/17 08:34 70 13 84 01/12/17 08:34 66 13 01/12/17 08:33 75 12 01/12/17 08:33 76 12 100 01/12/17 08:32 119/80 01/12/17 08:28 65 17 01/12/17 08:28 65 17 01/12/17 08:26 115/72 01/12/17 08:23 77 12 84 01/12/17 08:23 77 12 01/12/17 08:21 111/79 01/12/17 08:18 70 9 01/12/17 08:18 73 9 100 01/12/17 08:16 118/67 01/12/17 08:14 117/85 01/12/17 08:13 79 13 01/12/17 08:13 36.4 77 16 117/85 98 Diffusion Mask 6 01/12/17 08:13 80 13 100 01/12/17 06:33 36.6 88 16 97/50 (66) 98 Room Air Notes Mental Status: alert / awake / arousable, participated in evaluation Pt Amnestic to Procedure: Yes Nausea / Vomiting: adequately controlled Pain: adequately controlled Airway Patency, RR, SpO2: stable & adequate BP & HR: stable & adequate Hydration State: stable & adequate Anesthetic Complications: no major complications apparent
[2017-01-12 09:38] VITALS: BP 114/67; PULSE 67; O2SAT 100
== END | disposition home or self-care (01) ==
LOC: X.SURG 06:19
DX: J35.01 Chronic tonsillitis (principal); F32.9 Major depressive disorder, single episode, unspecified

== ENCOUNTER → 2017-02-23 | Outpatient (CLI) | payer OTHER ==
[~2017-02-23] MED LIST changes: -AMOX875T3 PO; -ATROPINE SULFATE 0.1 MG/ML 5ML SYR IV PRN; -BACITRACIN/POLYMYXIN B OINT 15 GM TUBE EXT ONE; -DEXAMETHASONE SOD INJ 4 MG/ML VIAL ONE; -FENTANYL CITRATE INJ 50 MCG/1 ML 2 ML VIAL IV PRN; -FENTANYL CITRATE INJ 50 MCG/1 ML 2 ML VIAL ONE; -LABETALOL HCL IV 5 MG/ML 20ML IV PRN; -LACTATED RINGER'S 1000ML 1,000 ML IV SCH; -LIDOCAINE 2% JELLY 5 ML TUBE EXT ONE; -LIDOCAINE HCL 2% 2 ML VIAL (20MG/ML) ONE; -MIDAZOLAM HCL 1 MG/ML 2ML VIAL ONE; -ONDANSETRON INJ 2 MG/ML 2 ML VIAL IV PRN; -ONDANSETRON INJ 2 MG/ML 2 ML VIAL ONE; -OXYCODONE HCL SOLN 5 MG/5 ML UDC PO PRN; -PROMETHAZINE HCL INJ 6.25 MG in SODIUM CHLORIDE 0.9% 50ML 50 ML IV PRN; -PROPOFOL IV EMULSION 10 MG/ML 20 ML VIAL IV ONE
[2017-02-27 02:26] LABS: CHLAMYDIA TRACH RNA*** NOT DETECTED (NOT DETECTED); GC (NEIS GONORRHOEAE)RNA** NOT DETECTED (NOT DETECTED)
== END | disposition home or self-care (01) ==
LOC: C.LABSPEC 15:56
PROVIDERS: ATTEND Physician Assistant
DX: Z01.419 Encounter for gynecological examination (general) (routine) without abnormal findings (principal)

== ENCOUNTER → 2017-02-23 | Outpatient (CLI) | payer OTHER | END | disposition home or self-care (01) | LOC: C.PAPS 16:08 | PROVIDERS: ATTEND Physician Assistant | DX: Z01.419 Encounter for gynecological examination (general) (routine) without abnormal findings (principal) ==

== ENCOUNTER → 2017-04-13 | Outpatient (CLI) | payer OTHER ==
[2017-04-13 13:44] LABS: BASO % 0.6 %; BASO ABS # 0.03 K/uL (0-0.2); COMPLETE YES; EOS % 1.3 %; IG% 0.2 %; LYMPH % 34.2 %; MEAN CELL VOLUME 82.4 fL (80-100); MEAN CORPUSCULAR HEMOGLOBIN 27.8 pg (25-34); MEAN CORPUSCULAR HGB CONC 33.7 g/dl (32-36); MEAN PLATELET VOLUME 12.2 fL (7.4-10.4); MONO % 13.5 %; NEUT % 50.2 %; PLATELET COUNT 215 K/uL (130-400); RED BLOOD COUNT 4.61 M/uL (4.2-5.4); WHITE BLOOD COUNT 5.26 K/uL (4.8-10.8)
== END | disposition home or self-care (01) ==
LOC: C.LABBC 11:53
PROVIDERS: ATTEND Nurse Practitioner Adult Health
DX: D64.9 Anemia, unspecified (principal)

== ENCOUNTER 2020-08-31 23:13 | Inpatient (IN) ==
[2020-08-31] MEDS ORDERED: OXYTOCIN 30 UNITS/500 ML BAG IV PRN (23:58)
[2020-09-01] MEDS ORDERED: miSOPROStoL 50 MCG TAB PO ONE ×2 (00:30→05:26)
[2020-09-01 00:46] LABS: Hematocrit (blood only) 30.3 % (37-47); Hemoglobin 9.7 g/dL (12.0-16.0); Mean Corpuscular Hemoglobin 24.6 pg (25-34); Mean Corpuscular Volume 76.7 fL (80-100); Mean Platelet Volume 11.1 fL (7.4-10.4); Platelet Count 176 K/uL (130-400); RDW Coefficient of Variation 15.1 % (11.5-14.5); RDW Standard Deviation 42.9 fL (36.4-46.3); Red Blood Count 3.95 M/uL (4.2-5.4); White Blood Count 11.72 K/uL (4.8-10.8)
--- NOTE | 2020-09-01 07:31 | History & Physical Report ---
Date of Service September 01, 2020 Assessment & Plan (1) PROM (premature rupture of membranes): (2) 40 weeks gestation of : (3) Unfavorable cervix in term : pt has been admitted. will see if cytotec ripens cx to begin pit. fhts categ 1. pt and partner agreeable to plan. Admission and Anticipated Discharge Date Admission Date: September 01, 2020 History of Present Illness Chief Complaint: leaking fluid since 9pm 08/31/20 clear Primary Care Provider: Radha Roberts 30yo at 40wks ega today with above cc. She notes continued clear leak of fluid. Gross srom on arrival last night with closed cervix and no ctx pattern. Given po cytotec around 1pm and dose repeated at about 540am. She is now noting more pain with ctx. She notes some pink tinge mucus and continued clear leak. PNC c/b 1. RH neg, had rhogam, eval pp 2. ADHD, under care of psych, H/o adderall use early in , discontinued and using other meds PNL rh neg, RI, GBS neg Allergies Allergy/AdvReac Type Severity Reaction Status Date / Time No Known Drug Allergies Allergy nkda Verified 08/31/20 23:28 Home Medications Medication Instructions Recorded Confirmed Type glycopyrrolate 1 mg tablet 1 mg PO DAILY PRN 01/15/20 08/31/20 History prenat.vits,julian,dgz-pcei-xxzzg 1 tab PO DAILY 01/15/20 08/31/20 History budesonide 2 spray INTRANASAL HS 08/31/20 08/31/20 History bupropion HCl 300 mg PO QAM 08/31/20 08/31/20 History venlafaxine 150 mg PO DAILY 08/31/20 08/31/20 History Patient History Medical History ADHD Anxiety Depression Surgical History S/P tonsillectomy S/P tooth extraction Family History Mother Hypothyroidism Allergies Father Depression Stroke Brother Allergies Other Asthma Cancer Hearing loss Heart disease Hypertension No family history of adverse response to anesthesia No family history of bleeding disorder Denies family history of Ovarian cancer Prostate cancer Myocardial infarction Breast cancer Social History Smoking Status: Never smoker Second Hand Exposure: No; Hx Alcohol Use: Yes Alcohol Intake Frequency: Monthly or Less Hx Substance Use: No Preferred Language: Japanese Communication Ability: Effective 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 Other Information That Helps Us Care for You: No Feels Safe at Home: Yes Safety Concerns: Feels Safe At This Time Assistive Devices: Contacts and Glasses Review of Systems as per Subjective / HPI; no fever Physical Exam Constitutional: WD/WN, vitals as above Respiratory: normal respiratory effort, lungs clear to auscultation Cardiovascular: Rate/Rhythm: regular rate and regular rhythm Gastrointestinal (Abdomen): soft gravid nt Musculoskeletal: no edema nontender calves Neurologic: grossly normal Psychiatric: A+Ox3, euthymic affect Genitourinary: OB Exam Abdomen: + vertex (by u/s) Manual OB Exam: + cervical dilation (closed per nurse) OB Exam Monitor Tracing: + external FHT monitor used (130 mod variability), + external uterine monitor used (q3-6), + category I and + normal FHT variability Results & Data ([facility]) Vital Signs (Past 12 Hours) Vital Signs Temp Pulse Resp BP 09/01/20 07:07 72 111/69 09/01/20 05:45 97.5 F L 71 18 103/56 L 09/01/20 04:19 97.7 F 82 18 138/68 09/01/20 02:29 97.5 F L 86 18 113/59 L 09/01/20 01:03 97.5 F L 18 08/31/20 23:38 93 H 129/74 08/31/20 23:26 97.5 F L 20 08/31/20 23:24 100 H 135/86 Coding Level of Care Code None Diagnoses PROM (premature rupture of membranes) O42.90 40 weeks gestation of Z3A.40 Unfavorable cervix in term O34.40
--- NOTE | 2020-09-01 10:03 | Labor Progress Brief Note ---
Date of Service September 01, 2020 Subjective Ctx more uncomfortable, feels better walking Assessment & Plan (1) PROM (premature rupture of membranes): 30 y/o at 40 wga presenting after PROM VSS Fetus cat 1, not yet reactive after being put back on monitor Labor - s/p 50mcg PO cytotec x 2, pt has not eaten in a long time. If reactive, can have light snack. Plan repeat cytotec if not lata too much GBS neg Epidural PRN (2) 40 weeks gestation of : (3) Unfavorable cervix in term : Admission and Anticipated Discharge Date Admission Date: September 01, 2020 Physical Exam Constitutional: WD/WN, vitals as above Respiratory: normal respiratory effort; no respiratory distress and no labored breathing Genitourinary: Manual OB Exam: + cervical dilation 1 cm, + cervical effacement 70% and + station -2 OB Exam Monitor Tracing: + external FHT monitor used, + external uterine monitor used (difficult to trace) and + category I (140/mod/+accel/-decel) Results & Data ([facility]) Vital Signs (Past 12 Hours) Vital Signs Temp Pulse Resp BP 09/01/20 07:07 98.1 F 72 18 111/69 09/01/20 05:45 97.5 F L 71 18 103/56 L 09/01/20 04:19 97.7 F 82 18 138/68 09/01/20 02:29 97.5 F L 86 18 113/59 L 09/01/20 01:03 97.5 F L 18 08/31/20 23:38 93 H 129/74 08/31/20 23:26 97.5 F L 20 08/31/20 23:24 100 H 135/86 Coding Level of Care Code None Diagnoses PROM (premature rupture of membranes) O42.90 40 weeks gestation of Z3A.40 Unfavorable cervix in term O34.40
--- NOTE | 2020-09-01 12:14 | Labor Progress Brief Note ---
Date of Service September 01, 2020 Subjective Feels more ready after light meal, ctx about the same Assessment & Plan (1) PROM (premature rupture of membranes): 30 y/o at 40 wga presenting after PROM VSS Fetus cat 1 Labor - s/p 50mcg PO cytotec x 2. Cervix able to be stretched more on this exam, more dilated than previous. Will start pit GBS neg Epidural PRN (2) 40 weeks gestation of : Admission and Anticipated Discharge Date Admission Date: September 01, 2020 Physical Exam Constitutional: WD/WN, vitals as above Respiratory: normal respiratory effort; no respiratory distress and no labored breathing Genitourinary: Manual OB Exam: + cervical dilation 2 cm (can stretch), + cervical effacement 70% and + station -2 OB Exam Monitor Tracing: + external FHT monitor used, + external uterine monitor used (q2-7) and + category I (135/mod/+accel/-decel) Results & Data ([facility]) Vital Signs (Past 12 Hours) Vital Signs Temp Pulse Resp BP 09/01/20 09:58 98.1 F 86 18 111/63 09/01/20 09:01 98.2 F 20 09/01/20 07:07 98.1 F 72 18 111/69 09/01/20 05:45 97.5 F L 71 18 103/56 L 09/01/20 04:19 97.7 F 82 18 138/68 09/01/20 02:29 97.5 F L 86 18 113/59 L 09/01/20 01:03 97.5 F L 18 Coding Level of Care Code None Diagnoses PROM (premature rupture of membranes) O42.90 40 weeks gestation of Z3A.40
[2020-09-01] MEDS ORDERED: OXYTOCIN 30 UNITS/500 ML BAG IV PRN ×2 (12:35→22:55)
[2020-09-01] MEDS: LACTATED RINGER'S 1,000 ML IV PRN ×2 (12:38→15:02)
[2020-09-01] MEDS ORDERED: fentaNYL citrate 100 MCG/2 ML VIAL ONE (14:23)
[2020-09-01] MEDS ORDERED: BUPIVACAINE 0.25% 30 ML VIAL ONE (14:23)
[2020-09-01] MEDS ORDERED: SODIUM CHLORIDE 0.9% INJ 10 ML VIAL ONE (14:23)
[2020-09-01] MEDS ORDERED: ePHEDrine sulfate 50 MG/ML AMP ONE (14:23)
[2020-09-01] MEDS ORDERED: fentaNYL 2MCG/ML ROPIVACAINE 1.25MG/ML 100 ML BAG EPI ONE (14:24)
--- NOTE | 2020-09-01 15:40 | Anesthesiology Consultation ---
Date of Service September 01, 2020 Assessment & Plan Chart Review Chart Review: Acceptable Risk for Labor Epidural Consults Requested none History Height/Weight Height: 5 ft 6 in Weight: 89.358 kg Allergies Allergy/AdvReac Type Severity Reaction Status Date / Time No Known Drug Allergies Allergy nkda Verified 08/31/20 23:28 Medications Home Medications Medication Instructions Recorded Confirmed Last Taken glycopyrrolate 1 mg tablet 1 mg PO DAILY PRN 01/15/20 08/31/20 06/29/20 21:00 prenat.vits,julian,omk-doms-kbcom 1 tab PO DAILY 01/15/20 08/31/20 08/31/20 08:00 budesonide 2 spray INTRANASAL HS 08/31/20 08/31/20 08/30/20 20:00 bupropion HCl 300 mg PO QAM 08/31/20 08/31/20 08/31/20 10:00 venlafaxine 150 mg PO DAILY 08/31/20 08/31/20 08/31/20 10:00 Active Medications Generic Name Dose Route Start Last Admin Trade Name Bertha PRN Reason Stop Dose Admin Lactated Ringer's 1,000 mls @ 125 mls/hr 08/31/20 23:58 09/01/20 15:23 Lr IV 09/03/20 23:57 999 mls/hr .Q8H PRN Infusion L&D Protocol Protocol Oxytocin 30 units in 500 mls @ 5 mls/hr 09/01/20 12:35 09/01/20 13:46 Pitocin IV 09/03/20 12:34 0.3 units/hr .Q24H PRN 5 mls/hr Labor Induction/Augmentation Titration Protocol 0.3 UNITS/HR Past Medical History Medical History ADHD Anxiety Depression Past Family History Family History Mother Hypothyroidism Allergies Father Depression Stroke Brother Allergies Other Asthma Cancer Hearing loss Heart disease Hypertension No family history of adverse response to anesthesia No family history of bleeding disorder Denies family history of Ovarian cancer Prostate cancer Myocardial infarction Breast cancer Past Surgical History Surgical History S/P tonsillectomy S/P tooth extraction Social History Smoking Status: Never smoker Hx Alcohol Use: Yes Hx Substance Use: No substance use type: does not use Physical Exam Vital Signs Last Vital Signs Temp 36.6 C 09/01/20 13:57 Pulse 97 H 09/01/20 15:37 Resp 18 09/01/20 13:57 BP 98/58 L 09/01/20 15:37 Pulse Ox 94 09/01/20 15:37 Testing Laboratory Results 09/01/20 00:21
[2020-09-01] MEDS ORDERED: fentaNYL 2MCG/ML ROPIVACAINE 1.25MG/ML 100 ML BAG EPI PRN (15:43)
[2020-09-01] MEDS ORDERED: ePHEDrine sulfate 50 MG/ML AMP IV PRN (15:43)
[2020-09-01] MEDS ORDERED: NALOXONE HCL 1 MG in SODIUM CHLORIDE 0.9% 1000ML 1,000 ML IV PRN (15:43)
[2020-09-01] MEDS ORDERED: diphenhydrAMINE 50 MG/ML VIAL IV PRN (15:43)
[2020-09-01] MEDS ORDERED: NALOXONE HCL 0.4 MG/1 ML VIAL/CARP IV PRN (15:43)
--- NOTE | 2020-09-01 17:10 | Labor Progress Brief Note ---
Date of Service September 01, 2020 Subjective Feels more ready after light meal, ctx about the same Assessment & Plan (1) PROM (premature rupture of membranes): 30 y/o at 40 wga presenting after PROM VSS Fetus cat 1 Labor - s/p 50mcg PO cytotec x 2. Pit at 9, continue titration, progressing nicely GBS neg Epidural in place Admission and Anticipated Discharge Date Admission Date: September 01, 2020 Physical Exam Constitutional: WD/WN, vitals as above Respiratory: normal respiratory effort; no respiratory distress and no labored breathing Genitourinary: Manual OB Exam: + cervical dilation 4 cm, + cervical effacement 70% and + station -2 OB Exam Monitor Tracing: + external FHT monitor used, + external uterine monitor used (q3-5) and + category I (125/mod/+accel/early decels) Results & Data ([facility]) Vital Signs (Past 12 Hours) Vital Signs Temp Pulse Resp BP Pulse Ox 09/01/20 17:02 94 H 109/64 100 09/01/20 16:57 87 97 09/01/20 16:52 87 98 09/01/20 16:47 87 98 09/01/20 16:46 85 107/58 L 09/01/20 16:42 88 98 09/01/20 16:37 85 98 09/01/20 16:32 88 98 09/01/20 16:28 85 105/58 L 09/01/20 16:27 86 16 98 09/01/20 16:22 86 105/57 L 99 09/01/20 16:17 89 108/59 L 100 09/01/20 16:12 92 H 16 108/61 100 09/01/20 16:07 90 110/61 100 09/01/20 16:03 88 108/56 L 09/01/20 16:02 91 H 100 09/01/20 15:58 88 108/59 L 09/01/20 15:57 91 H 18 100 09/01/20 15:52 91 H 100 09/01/20 15:51 93 H 108/61 09/01/20 15:49 91 H 109/64 09/01/20 15:47 89 114/61 100 09/01/20 15:45 96 H 109/70 09/01/20 15:43 88 101/57 L 09/01/20 15:42 109 H 16 91 09/01/20 15:41 96 H 103/57 L 92 09/01/20 15:40 93 H 111/56 L 09/01/20 15:37 97 H 18 98/58 L 94 09/01/20 15:35 94 H 112/57 L 09/01/20 15:34 98 H 93 09/01/20 15:33 91 H 105/59 L 09/01/20 15:32 97.7 F 99 H 16 100 09/01/20 15:31 96 H 104/57 L 09/01/20 15:29 88 103/57 L 09/01/20 15:27 99 H 103/55 L 100 09/01/20 15:25 94 H 100/57 L 09/01/20 15:23 96 H 107/56 L 09/01/20 15:22 96 H 99 09/01/20 15:21 104 H 103/59 L 09/01/20 15:19 96 H 102/58 L 92 09/01/20 15:17 89 100 09/01/20 15:15 104 H 90/52 L 09/01/20 15:12 103 H 98 09/01/20 15:11 88 95/52 L 09/01/20 15:07 96 H 100 09/01/20 15:06 94 H 118/72 09/01/20 14:55 88 120/66 09/01/20 13:57 97.9 F 93 H 18 118/67 09/01/20 12:34 98.1 F 92 H 18 116/58 L 09/01/20 09:58 98.1 F 86 18 111/63 09/01/20 09:01 98.2 F 20 09/01/20 07:07 98.1 F 72 18 111/69 09/01/20 05:45 97.5 F L 71 18 103/56 L Coding Level of Care Code None Diagnoses PROM (premature rupture of membranes) O42.90
--- NOTE | 2020-09-01 18:38 | Labor Progress Brief Note ---
Date of Service September 01, 2020 Subjective some pressure w/ ctx Assessment & Plan (1) PROM (premature rupture of membranes): 30 y/o at 40 wga presenting after PROM VSS Fetus cat 1 Labor - s/p 50mcg PO cytotec x 2. Pit at 11, continued progression GBS neg Epidural in place Admission and Anticipated Discharge Date Admission Date: September 01, 2020 Physical Exam Constitutional: WD/WN, vitals as above Respiratory: normal respiratory effort; no respiratory distress and no labored breathing Genitourinary: Manual OB Exam: + cervical dilation 8 cm, + cervical effacement 90% and + station 0 OB Exam Monitor Tracing: + external FHT monitor used, + external uterine monitor used (q3-5) and + category I (125/mod/+accel/-decels) Results & Data ([facility]) Vital Signs (Past 12 Hours) Vital Signs Temp Pulse Resp BP Pulse Ox 09/01/20 18:33 93 H 127/79 09/01/20 18:32 88 100 09/01/20 18:27 103 H 100 09/01/20 18:22 96 H 100 09/01/20 18:17 144 H 122/75 100 09/01/20 18:12 103 H 96 09/01/20 18:07 99 H 100 09/01/20 18:03 85 124/75 09/01/20 18:02 90 100 09/01/20 17:57 89 100 09/01/20 17:52 87 100 09/01/20 17:47 93 H 100 09/01/20 17:46 82 119/80 09/01/20 17:42 86 18 100 09/01/20 17:37 95 H 100 09/01/20 17:33 97 H 121/58 L 09/01/20 17:32 91 H 100 09/01/20 17:27 86 100 09/01/20 17:22 93 H 100 09/01/20 17:17 89 119/67 100 09/01/20 17:12 91 H 100 09/01/20 17:10 97.7 F 93 H 16 109/64 100 09/01/20 17:07 97 H 100 09/01/20 17:02 94 H 109/64 100 09/01/20 16:57 87 97 09/01/20 16:52 87 98 09/01/20 16:47 87 98 09/01/20 16:46 85 107/58 L 09/01/20 16:42 88 18 98 09/01/20 16:37 85 98 09/01/20 16:32 88 98 09/01/20 16:28 85 105/58 L 09/01/20 16:27 86 16 98 09/01/20 16:22 86 105/57 L 99 09/01/20 16:17 89 108/59 L 100 09/01/20 16:12 92 H 16 108/61 100 09/01/20 16:07 90 110/61 100 09/01/20 16:03 88 108/56 L 09/01/20 16:02 91 H 100 09/01/20 15:58 88 108/59 L 09/01/20 15:57 91 H 18 100 09/01/20 15:52 91 H 100 09/01/20 15:51 93 H 108/61 09/01/20 15:49 91 H 109/64 09/01/20 15:47 89 114/61 100 09/01/20 15:45 96 H 109/70 09/01/20 15:43 88 101/57 L 09/01/20 15:42 109 H 16 91 09/01/20 15:41 96 H 103/57 L 92 09/01/20 15:40 93 H 111/56 L 09/01/20 15:37 97 H 18 98/58 L 94 09/01/20 15:35 94 H 112/57 L 09/01/20 15:34 98 H 93 09/01/20 15:33 91 H 105/59 L 09/01/20 15:32 97.7 F 99 H 16 100 09/01/20 15:31 96 H 104/57 L 09/01/20 15:29 88 103/57 L 09/01/20 15:27 99 H 103/55 L 100 09/01/20 15:25 94 H 100/57 L 09/01/20 15:23 96 H 107/56 L 09/01/20 15:22 96 H 99 09/01/20 15:21 104 H 103/59 L 09/01/20 15:19 96 H 102/58 L 92 09/01/20 15:17 89 100 09/01/20 15:15 104 H 90/52 L 09/01/20 15:12 103 H 98 09/01/20 15:11 88 95/52 L 09/01/20 15:07 96 H 100 09/01/20 15:06 94 H 118/72 09/01/20 14:55 88 120/66 09/01/20 13:57 97.9 F 93 H 18 118/67 09/01/20 12:34 98.1 F 92 H 18 116/58 L 09/01/20 09:58 98.1 F 86 18 111/63 09/01/20 09:01 98.2 F 20 09/01/20 07:07 98.1 F 72 18 111/69 Coding Level of Care Code None Diagnoses PROM (premature rupture of membranes) O42.90
[2020-09-01] MEDS ORDERED: LIDOCAINE HCL 1% 20 ML VIAL ONE (22:13)
--- NOTE | 2020-09-01 22:33 | Delivery Summary ---
Vaginal Delivery Summary Date of Service September 01, 2020 Vaginal Delivery Summary (Vaginal laceration repair) PREOPERATIVE DIAGNOSIS: 1. Single intrauterine at 40 wga 2. Premature rupture of membranes POSTOPERATIVE DIAGNOSIS: 1. Single intrauterine at 40 wga 2. Premature rupture of membranes 3. Delivered PROCEDURE: 1. Normal spontaneous vaginal delivery. SURGEON: Louisa Florian MD ANESTHESIA: Epidural. ESTIMATED BLOOD LOSS: 300 mL FLUIDS: Continuous LR. URINE OUTPUT: None. COMPLICATIONS: None. CONDITION: Stable. INDICATIONS: 30 y/o at 40 wga presents after spontaneous rupture of membranes last evening. She was found to be closed on admission and was given PO cytotec x 2. She then received pitocin and was titrated up. She received an epidural for pain control. She progressed to complete and desired to push FINDINGS: A viable female infant with Apgars of 7 and 9 at 1 and 5 minutes respectively. SPECIMEN: Cord blood OPERATIVE REPORT: The patient progressed to 10 cm, 100% effaced and +2 station, pushed over intact perineum with anesthesia to deliver a viable male , Apgars as above. Head of delivered in VICTOR MANUEL position. No nuchal cord was present. Body and shoulders were delivered without difficulty. was delivered to maternal abdomen and nursing staff. Delayed cord clamping was performed for 60 seconds. Cord was clamped and cut. Cord blood was obtained. Placenta delivered spontaneously intact with 3-vessel cord. IV oxytocin and fundal massage were given for excellent hemostasis. Vagina, cervix, perineum, and placenta were inspected. A vaginal laceration was noted and repaired in the usual fashion. Sponge and needle counts correct x2. No sponges were left behind. Mother and stable in immediate period. [facility] [place] Vaginal Delivery Codes: 05840 global code for the antepartum, delivery, and post- Delivery Type Details: (Vaginal laceration repair)
[2020-09-01] MEDS ORDERED: HYDROCORTISONE ACETATE 25 MG SUPP PR PRN (22:55)
[2020-09-01] MEDS ORDERED: BENZOCAINE 20% AER SPR 82.5 GM CAN EXT PRN (22:55)
[2020-09-01] MEDS ORDERED: DIPHTHERIA/TETANUS/PERTUSSIS 0.5 ML SYR/VIAL IM ONE (22:55)
[2020-09-01] MEDS ORDERED: bisacodyL 10 MG SUPP PR PRN (22:55)
[2020-09-01] MEDS ORDERED: SUPERCREAM 0.870% 15 GM JAR EXT PRN (22:55)
[2020-09-01] MEDS ORDERED: ACETAMINOPHEN 325 MG TAB PO PRN (22:55)
[2020-09-02] MEDS: IBUPROFEN 600 MG TAB PO PRN ×4 (01:00→21:51)
--- NOTE | 2020-09-02 06:25 | Obstetrical Progress Note ---
Date of Service <Sarkis English MD - Last Filed: 09/02/20 07:33> September 02, 2020 Assessment & Plan <Sarkis English MD - Last Filed: 09/02/20 07:33> (1) 40 weeks gestation of : A/P: Salma Baker is a 30yo female on PPD#1 following at 40wga. * Patient feels well today; eating well, voiding well * Pain well-controlled with ibuprofen 600mg q4h prn * PNL: Rh neg, RI, GBS neg, COVID neg * Baby is Rh pos; additional rhogam dose indicated * Routine care: OOB, ambulation, diet progression as tolerated * After discharge, will have six-week follow-up with Dr. Chiqui Sanchez <Sarkis English MD - Last Filed: 09/02/20 07:33> Salma Baker is a 30yo female on PPD#1 following at 40wga. This morning she reports feeling well overall. Reports mild, 3/10 crampy abdominal pain well-managed on analgesics. Tolerating PO intake without nausea or vomiting. Patient has not ambulated much yet. Voiding well without difficulty. Lochia continues, though with some improvement this morning. Currently . Review of Systems Denies fever, chills, CP, SOB, cough, breast pain, dysuria, leg pain, leg swelling, headache, and changes in vision. Physical Exam <Sarkis English MD - Last Filed: 09/02/20 07:33> General: alert, oriented, no acute distress Cardiac: regular rate and rhythm, no murmurs appreciated Respiratory: lungs clear to auscultation bilaterally a/p, no wheezes/rales/rhonchi, no increased work of breathing, symmetrical chest rise, no respiratory distress Abdomen: soft, minimally tender, nondistended, bowel sounds present Uterus: uterine fundus firm, palpable 3cm below umbilicus Lower extremities: no lower extremity edema or swelling, no deep calf pain, Job's negative bilaterally Results & Data ([facility]) <Sarkis English MD - Last Filed: 09/02/20 07:33> Vital Signs (Past 12 Hours) Vital Signs Temp Pulse Pulse Resp BP BP Pulse Ox 04/29/21 02:00 37.5 C 81 20 118/71 09/02/20 00:37 96 H 97 09/02/20 00:32 95 H 98 09/02/20 00:30 100 H 18 148/65 H 09/02/20 00:27 103 H 98 09/02/20 00:22 101 H 98 09/02/20 00:17 102 H 98 09/02/20 00:14 100 H 125/67 09/02/20 00:12 98 H 98 09/02/20 00:07 100 H 99 09/02/20 00:02 92 H 98 09/02/20 00:00 18 09/01/20 23:59 94 H 131/71 09/01/20 23:57 96 H 98 09/01/20 23:52 95 H 99 09/01/20 23:47 93 H 99 09/01/20 23:44 98 H 121/61 09/01/20 23:42 93 H 99 09/01/20 23:37 98 H 99 09/01/20 23:32 96 H 99 09/01/20 23:30 18 09/01/20 23:29 99 H 123/60 09/01/20 23:27 110 H 99 09/01/20 23:22 98 H 99 09/01/20 23:17 103 H 98 09/01/20 23:15 18 09/01/20 23:14 106 H 111/68 09/01/20 23:12 104 H 98 09/01/20 23:07 100 H 98 09/01/20 23:02 96 H 97 09/01/20 23:00 18 09/01/20 22:59 100 H 112/73 09/01/20 22:57 95 H 97 09/01/20 22:52 98 H 99 09/01/20 22:51 94 H 128/79 09/01/20 22:47 102 H 98 09/01/20 22:45 18 09/01/20 22:42 96 H 98 09/01/20 22:37 102 H 98 09/01/20 22:32 105 H 97 09/01/20 22:30 113 H 18 129/76 09/01/20 22:27 108 H 99 09/01/20 22:22 113 H 98 09/01/20 22:17 117 H 98 09/01/20 22:16 117 H 147/70 H 09/01/20 22:12 119 H 99 09/01/20 22:07 112 H 96 09/01/20 22:02 128 H 98 09/01/20 22:01 118 H 139/67 09/01/20 21:57 117 H 98 09/01/20 21:52 120 H 98 09/01/20 21:47 151 H 97 09/01/20 21:46 141 H 122/60 09/01/20 21:42 144 H 97 09/01/20 21:37 143 H 97 09/01/20 21:32 149 H 98 09/01/20 21:30 18 09/01/20 21:27 105 H 97 09/01/20 21:22 104 H 97 09/01/20 21:17 112 H 131/64 98 09/01/20 21:12 102 H 100 09/01/20 21:07 121 H 99 09/01/20 21:02 116 H 99 09/01/20 21:01 114 H 131/64 09/01/20 21:00 18 09/01/20 20:57 102 H 98 09/01/20 20:52 111 H 98 09/01/20 20:47 98 H 137/65 99 09/01/20 20:42 130 H 100 09/01/20 20:37 109 H 100 09/01/20 20:32 110 H 133/83 96 09/01/20 20:30 18 09/01/20 20:27 102 H 99 09/01/20 20:22 107 H 90 09/01/20 20:17 135 H 117/69 100 09/01/20 20:12 108 H 100 09/01/20 20:07 108 H 99 09/01/20 20:02 119 H 98 09/01/20 20:00 18 09/01/20 19:57 112 H 97 09/01/20 19:52 104 H 97 09/01/20 19:47 100 H 99 09/01/20 19:46 93 H 125/80 09/01/20 19:42 92 H 99 09/01/20 19:37 104 H 100 09/01/20 19:32 112 H 100 09/01/20 19:31 96 H 121/70 09/01/20 19:30 18 04/28/21 19:27 100 H 100 09/01/20 19:22 95 H 98 09/01/20 19:17 96 H 127/71 99 09/01/20 19:12 90 98 09/01/20 19:07 97 H 100 09/01/20 19:02 101 H 100 09/01/20 19:01 95 H 125/79 09/01/20 18:57 98 H 100 09/01/20 18:52 96 H 100 09/01/20 18:47 92 H 100 09/01/20 18:46 98 H 125/80 09/01/20 18:42 91 H 16 100 09/01/20 18:37 93 H 100 09/01/20 18:33 93 H 127/79 09/01/20 18:32 88 100 09/01/20 18:27 103 H 100 <Louisa Florian MD - Last Filed: 09/02/20 07:38> Co-Signing Physician Notes Resident Physician Supervision Note: I interviewed and examined the patient. Discussed with Dr. English and agree with findings and plan as documented in the note. Any exceptions or clarifications are listed here: PP1, doing well, meeting milestones. Continue routine pp care, plan for d/c tomorrow Documented By: Louisa Florian MD Resident Activity Tracking <Sarkis English MD - Last Filed: 09/02/20 07:33> Resident Involvement: Resident Care Provided Care Provided: OB Delivery
[2020-09-02 06:31] LABS: Hematocrit (blood only) 29.6 % (37-47); Hemoglobin 9.5 g/dL (12.0-16.0); Mean Corpuscular Hemoglobin 24.7 pg (25-34); Mean Corpuscular Hgb Conc 32.1 g/dL (32-36); Mean Corpuscular Volume 77.1 fL (80-100); Mean Platelet Volume 11.5 fL (7.4-10.4); Platelet Count 176 K/uL (130-400); RDW Coefficient of Variation 15.3 % (11.5-14.5); RDW Standard Deviation 43.1 fL (36.4-46.3); Red Blood Count 3.84 M/uL (4.2-5.4); White Blood Count 14.61 K/uL (4.8-10.8)
--- NOTE | 2020-09-02 08:10 | Anesthesia Procedure Note ---
Date of Service September 02, 2020 Anesthesia Post Epidural Note Vital Signs Vital Signs: Temp Pulse Resp BP Pulse Ox 36.9 C 76 16 119/70 99 09/02/20 07:44 09/02/20 07:44 09/02/20 07:44 09/02/20 07:44 09/02/20 07:44 Notes Mental Status: alert / awake / arousable and participated in evaluation Nausea / Vomiting: adequately controlled Pain: adequately controlled Airway Patency, RR, SpO2: stable & adequate BP & HR: stable & adequate Hydration State: stable & adequate Neuraxial Anesthesia: was administered and sensory block is resolving Anesthetic Complications: no major complications apparent and Pt Satisfied with anesthetic care Epidural: Removed without complications and With tip intact
[2020-09-02] MEDS: DOCUSATE SODIUM 100 MG CAP PO SCH ×2 (09:13→21:51)
[2020-09-02] MEDS: PRENATAL VITAMIN 1 TAB PO SCH (09:13)
[2020-09-02] MEDS: FERROUS SULFATE 325 MG TAB PO SCH (09:13)
[2020-09-02] MEDS: VENLAFAXINE HCL XR 150 MG CAPXR PO SCH (09:25)
[2020-09-02] MEDS: buPROPion XL 300 MG TABCR PO SCH (09:25)
[2020-09-02] MEDS ORDERED: bisacodyL 5 MG TABEC PO SCH (20:00)
[2020-09-02] MEDS ORDERED: BUDESONIDE AQ (RHINOCORT AQ) NASAL SPRAY 32 MCG SCH (21:00)
[2020-09-03] MEDS: IBUPROFEN 600 MG TAB PO PRN (05:44)
--- NOTE | 2020-09-03 06:29 | Obstetrical Progress Note ---
Date of Service <Sarkis English MD - Last Filed: 09/03/20 07:04> September 03, 2020 Assessment & Plan <Sarkis English MD - Last Filed: 09/03/20 07:04> (1) 40 weeks gestation of : A/P: Salma Baker is a 30yo female on PPD#2 following at 40wga. * Patient feels well today; eating well, voiding well * Pain well-controlled with ibuprofen 600mg q4h prn * Continue venlafaxine, wellbutrin, iron * PNL: Rh neg, RI, GBS neg, COVID neg * Baby is Rh pos; final rhogam dose given 09/02 * Routine care: OOB, ambulation, diet progression as tolerated * After discharge, will have six-week follow-up with Dr. Florian Subjective <Sarkis English MD - Last Filed: 09/03/20 07:04> Salma Baker is a 30yo female on PPD#2 following at 40wga. This morning she reports feeling well and has no complaints. Reports mild, 1/10 abdominal pain well-managed on analgesics. Tolerating PO intake without nausea or vomiting. Ambulating without lightheadedness or dizziness. Voiding well without difficulty. Lochia minimal. Currently . Denies fever, chills, CP, SOB, cough, breast pain, dysuria, leg pain, leg swelling, headache, and changes in vision. Physical Exam <Sarkis English MD - Last Filed: 09/03/20 07:04> General: alert, oriented, no acute distress Cardiac: regular rate and rhythm, no murmurs appreciated Respiratory: lungs clear to auscultation bilaterally a/p, no wheezes/ral es/rhonchi, no increased work of breathing, symmetrical chest rise, no respiratory distress Abdomen: soft, minimally tender, nondistended, bowel sounds present Uterus: uterine fundus firm, palpable 3cm below umbilicus Lower extremities: no lower extremity edema or swelling, no deep calf pain, Job's negative bilaterally Results & Data ([facility]) <Sarkis English MD - Last Filed: 09/03/20 07:04> Vital Signs (Past 12 Hours) Vital Signs Temp Pulse Resp BP Pulse Ox 09/02/20 23:45 37.0 C 84 16 115/68 98 09/02/20 20:10 36.9 C 90 18 125/73 97 <Jailyn Das MD - Last Filed: 09/03/20 07:13> Co-Signing Physician Notes Resident Physician Supervision Note: I interviewed and examined the patient. Discussed with Dr. Nielsen and agree with findings and plan as documented in the note. Any exceptions or clarifications are listed here: [ ] Documented By: Jailyn Das MD, FACOG Resident Activity Tracking <Sarkis English MD - Last Filed: 09/03/20 07:04> Resident Involvement: Resident Care Provided Care Provided: OB Delivery
[2020-09-03] MEDS: PRENATAL VITAMIN 1 TAB PO SCH (08:46)
[2020-09-03] MEDS: FERROUS SULFATE 325 MG TAB PO SCH (08:47)
[2020-09-03] MEDS: DOCUSATE SODIUM 100 MG CAP PO SCH (08:47)
[2020-09-03] MEDS: buPROPion XL 300 MG TABCR PO SCH (08:47)
[2020-09-03] MEDS: VENLAFAXINE HCL XR 150 MG CAPXR PO SCH (08:47)
== END 2020-09-03 11:30 | disposition home or self-care (01) | DRG 807 ==
LOC: OPB 23:13 → 4S1 23:15 → 4S2 09-02 01:26